=== PATIENT | male | born 1950 | race Caucasian/White ===

== ENCOUNTER → 2021-09-23 13:13 | Outpatient (CLI) | payer MEDICARE, SELFPAY ==
--- NOTE | ~2021-09-23 | CT_ITS ---
EXAMINATION: CT abdomen pelvis wo/w con DATE: 09/23/2021 13:48 INDICATION: Diverticulosis TECHNIQUE: Computed tomography (CT) of the abdomen and pelvis was performed without and with 100 cc O mnipaque 350 intravenous contrast. The dose-length product was 1741.37 mGy-cm. Automated exposure con trol and iterative reconstruction technique were employed. COMPARISON: CT dated 12/15/2018 FINDINGS: Lung bases are unremarkable. Heart size normal. No significant pleural or pericardial effus ion. There are calcified granulomas in the right lower lobe. Mild atherosclerosis. There is ectasia o f the infrarenal abdominal aorta measuring up to 2.8 cm with ectasia of the common iliac arteries. Th ere is a 2 cm exophytic right renal cyst. Status post cholecystectomy. The liver, pancreas, adrenal g lands and left kidney are unremarkable. There are calcified granulomas of the spleen. Small fat-conta ining umbilical hernia. Normal appendix. No free air or free fluid. Severe lumbar spondylosis. 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 IMPRESSION: 1. No acute abdominal abnormality. 2: Atherosclerosis with ectasia of the infrarenal abdominal aorta and common iliac arteries. Reviewed, dictated and finalized at location A. R VEHICLES INSPECTOR IMPRESSION: 1. No acute abdominal abnormality. 2: Atherosclerosis with ectasia of the infrarenal abdominal aorta and common il iac arteries.
[2021-09-23 13:36] LABS: Estimated Glomerular Filt Rate > 60
== END ==
DX: K57.90 Diverticulosis of intestine, part unspecified, without perforation or abscess without bleeding (principal); Z87.11 Personal history of peptic ulcer disease; I26.99 Other pulmonary embolism without acute cor pulmonale
CPT/HCPCS: 74178; Q9967

== ENCOUNTER 2022-09-03 08:08 | Outpatient (CLI) | payer MEDICARE, SELFPAY ==
[2022-09-03 18:48] LABS: Alanine Aminotransferase 45 U/L (6-50); Albumin Level 4.2 g/dL (3.5-5.1); Alkaline Phosphatase 83 U/L (38-126); Anion Gap 11 mmol/L (8-16); Aspartate Amino Transferase 42 U/L (17-59); Bilirubin,Total 1.7 mg/dL (0.2-1.3); Blood Urea Nitrogen 15 mg/dL (9-20); Calcium 9.2 mg/dL (8.4-10.2); Carbon Dioxide 25 mmol/L (22-30); Chloride 102 mmol/L (98-107); Cholesterol 139 mg/dL (0-200); Estimated Glomerular Filt Rate > 60; Glucose 87 mg/dL (65-110); HDL Direct 29 mg/dL; Potassium 4.2 mmol/L (3.4-5.0); Sodium 138 mmol/L (137-145); Triglycerides 81 mg/dL (<150)
[2022-09-03 18:49] LABS: Basophils Absolute Auto 0.1 K/mm3 (0.0-0.1); Basophils Percent Auto 0.8 % (0.2-1.2); Eosinophils Absolute Auto 0.3 K/mm3 (0-0.3); Eosinophils Percent Auto 5.4 % (0-4.4); Hematocrit 46.7 % (42.0-52.0); Immature Granulocyte Absolute 0.04 K/mm3 (0.00-0.031); Immature Granulocyte Percent A 0.6 % (0-0.5); Lymphocytes Percent Auto 28.8 % (18.3-44.2); Mean Corpuscular HGB Conc 32.1 g/dl (32-36); Mean Corpuscular Hemoglobin 32.9 pg (26-34); Mean Corpuscular Volume 102.4 fl (80-100); Mean Platelet Volume 11.1 fl (7.4-10.4); Monocytes Absolute Auto 0.6 K/mm3 (0.1-0.6); Monocytes Percent Auto 9.3 % (2.6-8.5); Neutrophils Absolute Auto 3.4 K/mm3 (1.3-6.7); Neutrophils Percent Auto 55.1 % (45.5-73.1); Platelet Count Result 162 k/mm3 (150-375); Red Blood Count 4.56 M/mm3 (4.6-6.20); Red Cell Distribution Width 13.7 % (11.5-14.5); White Blood Count 6.3 K/mm3 (4.5-10.0)
[2022-09-03 18:59] LABS: LDL Cholesterol Direct 82 mg/dL
[2022-09-03 19:17] LABS: Prostate Specific Antigen 0.4 ng/mL (< OR = 4.0)
[2022-09-03 19:26] LABS: Hemoglobin A1C 6.4 % (<5.7)
== END 2022-09-03 08:09 | disposition home or self-care (01) ==
PROVIDERS: PCP Family Medicine; Visit Provider Family Medicine
DX: D64.9 Anemia, unspecified (principal); I10 Essential (primary) hypertension; E78.5 Hyperlipidemia, unspecified; Z12.5 Encounter for screening for malignant neoplasm of prostate; E11.9 Type 2 diabetes mellitus without complications; R53.83 Other fatigue
CPT/HCPCS: 36415; 80053; 80061; 83036; 84153; 85025; G0103

== ENCOUNTER 2022-12-01 11:52 | Outpatient (CLI) | payer MEDICARE, SELFPAY ==
--- NOTE | 2022-12-01 12:59 | ECG_ITS ---
Measurements Intervals [place] Rate: 45 P: 111 LA: 176 QRS: -28 QRSD: 149 T: 3 QT: 472 QTc: 410 Interpretive Statements SINUS BRADYCARDIA RIGHT BUNDLE BRANCH BLOCK BASELINE ARTIFACT- I, II, III, AVR, AVL, AVF ABNORMAL ECG COMPARED TO ECG 12/15/2018 19:48:28 HEART RATE HAS DECREASED Electronically Signed On 12-01-2022 15:12:25 AIDS COUNSELOR by Wilman Iverson D.O.
[2022-12-01 13:28] LABS: Basophils Absolute Auto 0.1 K/mm3 (0.0-0.1); Basophils Percent Auto 0.8 % (0.2-1.2); Eosinophils Absolute Auto 0.3 K/mm3 (0-0.3); Eosinophils Percent Auto 4.2 % (0-4.4); Hematocrit 44.2 % (42.0-52.0); Hemoglobin 15.2 g/dL (14.0-18.0); Immature Granulocyte Absolute 0.02 K/mm3 (0.00-0.031); Immature Granulocyte Percent A 0.3 % (0-0.5); Lymphocytes Absolute Auto 2.09 K/mm3 (0.9-3.2); Lymphocytes Percent Auto 28.3 % (18.3-44.2); Mean Corpuscular HGB Conc 34.4 g/dl (32-36); Mean Corpuscular Hemoglobin 32.8 pg (26-34); Mean Corpuscular Volume 95.3 fl (80-100); Mean Platelet Volume 10.1 fl (7.4-10.4); Monocytes Absolute Auto 0.7 K/mm3 (0.1-0.6); Monocytes Percent Auto 9.5 % (2.6-8.5); Neutrophils Absolute Auto 4.2 K/mm3 (1.3-6.7); Neutrophils Percent Auto 56.9 % (45.5-73.1); Platelet Count Result 150 k/mm3 (150-375); Red Blood Count 4.64 M/mm3 (4.6-6.20); White Blood Count 7.4 K/mm3 (4.5-10.0)
[2022-12-01 13:34] LABS: Albumin Level 4.2 g/dL (3.5-5.1)
[2022-12-01 13:35] LABS: Urine Cotinine NEGATIVE
[2022-12-01 13:37] LABS: Anion Gap 5 mmol/L (8-16); Blood Urea Nitrogen 18 mg/dL (9-20); Calcium 9.1 mg/dL (8.4-10.2); Carbon Dioxide 28 mmol/L (22-30); Chloride 102 mmol/L (98-107); Estimated Glomerular Filt Rate > 60; Glucose 88 mg/dL (65-110); Potassium 3.8 mmol/L (3.4-5.0); Sodium 135 mmol/L (137-145)
== END 2022-12-01 11:53 | disposition home or self-care (01) ==
LOC: ANHSURGERY 12:00
PROVIDERS: Anesthesiology; PCP Family Medicine; Visit Provider Orthopaedic Surgery
DX: Z01.812 Encounter for preprocedural laboratory examination (principal); Z01.810 Encounter for preprocedural cardiovascular examination; M16.11 Unilateral primary osteoarthritis, right hip; Z79.899 Other long term (current) drug therapy; R00.1 Bradycardia, unspecified; I45.10 Unspecified right bundle-branch block
CPT/HCPCS: 36415; 80048; 80307; 82040; 83036; 85025; 86850; 86900; 86901; 87081; 93005

== ENCOUNTER 2023-05-31 11:54 | Outpatient (CLI) | payer MEDICARE, SELFPAY ==
[2023-05-31 13:25] LABS: Basophils Absolute Auto 0.1 K/mm3 (0.0-0.1); Basophils Percent Auto 1.2 % (0.2-1.2); Eosinophils Absolute Auto 0.4 K/mm3 (0-0.3); Eosinophils Percent Auto 4.9 % (0-4.4); Hemoglobin 15.5 g/dL (14.0-18.0); Immature Granulocyte Absolute 0.05 K/mm3 (0.00-0.031); Immature Granulocyte Percent A 0.7 % (0-0.5); Lymphocytes Absolute Auto 1.85 K/mm3 (0.9-3.2); Lymphocytes Percent Auto 24.1 % (18.3-44.2); Mean Corpuscular HGB Conc 33.7 g/dl (32-36); Mean Corpuscular Hemoglobin 33.3 pg (26-34); Mean Corpuscular Volume 98.9 fl (80-100); Mean Platelet Volume 10.3 fl (7.4-10.4); Monocytes Absolute Auto 0.7 K/mm3 (0.1-0.6); Monocytes Percent Auto 8.7 % (2.6-8.5); Neutrophils Absolute Auto 4.6 K/mm3 (1.3-6.7); Neutrophils Percent Auto 60.4 % (45.5-73.1); Platelet Count Result 154 k/mm3 (150-375); Red Blood Count 4.65 M/mm3 (4.6-6.20); Red Cell Distribution Width 13.2 % (11.5-14.5); White Blood Count 7.7 K/mm3 (4.5-10.0)
[2023-05-31 13:39] LABS: Albumin Level 4.1 g/dL (3.5-5.1)
[2023-05-31 13:42] LABS: Anion Gap 2 mmol/L (8-16); Blood Urea Nitrogen 18 mg/dL (9-20); Calcium 9.5 mg/dL (8.4-10.2); Carbon Dioxide 30 mmol/L (22-30); Chloride 103 mmol/L (98-107); Estimated Glomerular Filt Rate > 60; Glucose 99 mg/dL (65-110); Potassium 4.5 mmol/L (3.4-5.0); Sodium 135 mmol/L (137-145)
[2023-05-31 14:13] LABS: Urine Cotinine NEGATIVE
[2023-05-31 16:01] LABS: Hemoglobin A1C 6.6 % (<5.7)
== END 2023-05-31 11:55 | disposition home or self-care (01) ==
LOC: ANHSURGERY 11:58
PROVIDERS: Anesthesiology; PCP Family Medicine; Visit Provider Orthopaedic Surgery
DX: M16.11 Unilateral primary osteoarthritis, right hip (principal); E11.9 Type 2 diabetes mellitus without complications; Z01.818 Encounter for other preprocedural examination
CPT/HCPCS: 36415; 80048; 80307; 82040; 83036; 85025; 86850; 86900; 86901; 87081

== ENCOUNTER 2023-06-09 01:16 | Day surgery (SDC) | payer MEDICARE, SELFPAY ==
--- NOTE | 2022-12-01 11:43 | PC.NURSE ---
Addendum entered by Kayla Easley RN 12/01/22 12:43: SPOKE WITH HUMPHREY AT DR. URBAN'S OFFICE CONCERNING ELIQUIS - PT INFORMED TO STOP ELIQUIS 3 DAYS PRIOR TO SURGERY WITH LAST DOSE TO BE TAKEN ON 12/03/22 - UNDERSTANDING VOICED. Original Note: PRE-OP INSTRUCTIONS, PLEASE READ CAREFULLY Report to the Outpatient Waiting Room, entrance under the green pavilion located off [facility], at time _0900_ on date _12/07/22_. Planned Procedure Time: _1100_. PACK A SMALL OVERNIGHT BAG AND LEAVE IN THE CAR ALONG WITH YOUR WALKER Time changes happen often and if your time is changed the preop area will call you the afternoon before. - You and your visitor will be asked to self-screen and do not enter if you have any COVID symptoms. - Only one visitor is requested with a max of two and NO children visitors are allowed at this time. - The patient visitor may be requested to leave or wait in car when not with patient due to distancing restrictions. - A mask is optional within the hospital at this time. -VISITING HOURS 8AM-8PM, LIMIT OF 2 VISITORS AT A TIME Patients may have clear liquids (water, carbonated beverages, clear teas, apple juice) until 3 hours prior to surgery (0800 AM) with a maximum of 20 ounces. - No food from midnight until time of surgery Take the following medications with a SIP of water the morning of surgery: _TYLENOL IF NEEDED_ DO NOT STOP ANY OF YOUR OTHER PRESCRIPTION MEDICATIONS PRIOR TO SURGERY ?EXCEPT THE FOLLOWING Medications to discontinue per DR. URBAN - _APIXABAN (ELIQUIS) 5 DAYS PRIOR TO SURGERY, Date to take last dose 12/01/22_ Medications to discontinue per ANESTHESIA - _GLUCOSAMINE-CHONDROITIN 3 DAYS PRIOR TO SURGERY, Date to take last dose 12/03/22_ Please no deodorant, or body powder the day of surgery. No jewelry (including any body piercings) or valuables the day of surgery, leave them at home. Please take a shower or bath the night before, or the morning of, surgery with an antibacterial soap. Wear comfortable, loose fitting clothing. - Jewelry must be removed prior to entering the operating room. Rings and piercings that are not removed may be cut off. - The hospital will not accept responsibility for valuables. - Please leave all valuables, including medications, at home the day of surgery. If you are going home after surgery, a licensed solo truck driver must drive you home. - NO public transportation without another adult if you receive anesthesia. - We recommend that an adult stay with you for 24 hours following discharge. - We also recommend that you do not drive, make important decision, drink alcoholic beverages, or take any drugs that were not prescribed by your health care provider for at least 24 hours after your discharge time. Follow any additional instructions given to you from your surgeon. If you or anyone in your household have experienced Covid symptoms in the past week, please notify your surgeon or the nurse liaison at the phone number below for possible testing. Instructions given to _PATIENT_and asked if any additional questions and then verbalized understanding. Patient advised to call surgeon office or pre surgery nurse liaison [phone] if any additional questions.
[2022-12-01 12:18] VITALS: BP 132/70; PULSE 50; RESP 20; TEMP 36.8; O2SAT 99; BMI 30.7
--- NOTE | 2022-12-03 12:51 | PM.IMHP ---
H&P: HPI History of Present Illness Date/Time: 12/03/22 12:51 Chief Complaint: the patient is a 72-year-old male who presents with chronic ongoing history of right hip and groin pain. The patient has limited motion in the right hip joint has aching pain that radiates into the thigh worse with activity somewhat relieved by rest. He notes he cannot stand or walk for long periods, this has been going on for several years now worsening with time. X-rays this time reveal severe primary osteoarthritis which is [id number] the right femoral acetabular joint with osteophyte formation and complete loss of joint space. The patient has failed a long course of conservative measures including anti-inflammatories prednisone and activity modification. At this point he has discussed further treatment options in detail with Dr. Meraz he would like to proceed with right total hip arthroplasty. Review of Systems Review of Systems: Ten point review of systems otherwise negative [facility] Past Medical History Medical History Allergies Arthritis Blood clotting disorder Cholecystectomy planned 2019 Diabetes H/O ulceration Hypertension Surgical History Surgical History H/O knee surgery Double 2017 History of tonsillectomy 1955 Family History Family History Father Acute myocardial infarction Hypertension Heart disease Mother Family history of chronic obstructive pulmonary disease Sibling Diabetes mellitus Cancer Hypertension Social History Social History Social History: Caffeine-none Smoking status: Never smoker Second hand tobacco smoke exposure: No Additional smoking assessment comments: PT DENIES ALL FORMS OF TOBACCO USE Alcohol intake: never Substance use: never Substance use type: does not use Lack of Transportation: No Lack of Food: Never True Current Housing: I Have Housing Concerned About Future Housing: No Difficulty Paying Gas/Electric Bills: No Difficulty Paying for Meds: No Currently Unemployed: No Education: Bachelor's Degree Difficulty w/ Childcare or Family Care: No Living arrangements: with family Additional living arrangements comments: LIVES WITH [employer] [place] Occupation/Education: retired Gender identity (if verbalized by the patient): Male Sexual Orientation (if Verbalized by the Patient): Straight or Heterosexual Spiritual care concerns: No Agree to blood products: Yes Meds Home Medications and Allergies Home Medications Medication Instructions Recorded Confirmed Type acetaminophen 500 mg tablet 1,000 mg PO Q6H PRN Pain 06/08/22 12/01/22 History (Tylenol Extra Strength) allopurinol 300 mg tablet 300 mg PO DAILY 06/08/22 12/01/22 History antiarthritic combination no.2 900 1,800 mg PO DAILY 06/08/22 12/01/22 History mg tablet (glucosamine-chondroitin) apixaban 5 mg tablet (Eliquis) 5 mg PO BID 06/08/22 12/01/22 History atorvastatin 20 mg tablet 20 mg PO DAILY 06/08/22 12/01/22 History cetirizine 10 mg tablet (Zyrtec) 10 mg PO DAILY 06/08/22 12/01/22 History furosemide 40 mg tablet (Lasix) 40 mg PO QAM PRN SWELLING 06/08/22 12/01/22 History insulin degludec 200 unit/mL (3 16 unit subcut DAILY 06/08/22 12/01/22 History mL) subcutaneous pen (Tresiba FlexTouch U-200 insulin) losartan 50 mg tablet 50 mg PO DAILY 06/08/22 12/01/22 History Allergies Allergy/AdvReac Type Severity Reaction Status Date / Time No Known Allergies Allergy Verified 12/01/22 12:12 Exam Narrative: on exam the patient is noted be a well-developed well-nourished male no acute distress alert oriented x3. Normal mood and affect. He is noted to be 6 ft 1 in tall 230 lb with a BMI 30.3. Hearing and vision intact. Respiratory is good no distress. Puls
[2023-05-31 12:03] VITALS: BMI 31.5
--- NOTE | 2023-05-31 12:24 | PC.NURSE ---
Report to the Outpatient Waiting Room, entrance under the green pavilion located off [facility], at time _0600 on date __06/09/23 . Planned Procedure Time: __0730 . Time changes happen often and if your time is changed the preop area will call you the afternoon before. - You and your visitor will be asked to self-screen and do not enter if you have any COVID symptoms. - A mask is optional within the hospital at this time. Patients may have clear liquids (water, carbonated beverages, clear teas, apple juice) until 3 hours prior to surgery with a maximum of 20 ounces. - No food from midnight until time of surgery - Infants may have breast milk until 4 hours before surgery, formula 6 hours prior to surgery. - Children will be allowed to drink immediately following surgery. If applicable, please bring a bottle or sippy cup to assist with drinking. Juice, water, soda, and popsicles are readily available. For infants on formula, please bring formula the day of surgery. Pacifiers are allowed. Take the following medications with a SIP of water the morning of surgery: ___NONE DO NOT STOP ANY OF YOUR OTHER PRESCRIPTION MEDICATIONS PRIOR TO SURGERY ?EXCEPT THE FOLLOWING Medications to discontinue per physician ___PT STATES HOLD ELIQUIS 3 DAYS PRE OP PER DR URBAN/DR CABAN .LAST DOSE 06/05/23. ALL VITAMINS 3 DAYS PRE OP. LAST DOSE 06/05/23 Please no make-up, nail czech, hairspray, perfume, deodorant, or body powder the day of surgery. No jewelry (including any body piercings) or valuables the day of surgery, leave them at home. Please take a shower or bath the night before, or the morning of, surgery with an antibacterial soap. Wear comfortable, loose fitting clothing. Children are encouraged to wear pajamas. - Jewelry must be removed prior to entering the operating room. Rings and piercings that are not removed may be cut off. - The hospital will not accept responsibility for valuables. - Please leave all valuables, including medications, at home the day of surgery. If you are going home after surgery, a licensed concrete mixer truck driver must drive you home. - NO public transportation without another adult if you receive anesthesia. - We recommend that an adult stay with you for 24 hours following discharge. - We also recommend that you do not drive, make important decision, drink alcoholic beverages, or take any drugs that were not prescribed by your health care provider for at least 24 hours after your discharge time. For Pediatric surgeries, we recommend two adults accompany the child home. Follow any additional instructions given to you from your surgeon. If you or anyone in your household have experienced Covid symptoms in the past week, please notify your surgeon or the nurse liaison at the phone number below for possible testing. VERBAL AND WRITTEN instructions given to __PATIENT and asked if any additional questions and then verbalized understanding. Patient advised to call surgeon office or pre surgery nurse liaison [phone] if any additional questions.
--- NOTE | 2023-06-04 14:03 | PM.IMHP ---
H&P: HPI History of Present Illness Date/Time: 06/04/23 14:03 Chief Complaint: The patient is a 73-year-old male who sees Dr. Meraz regarding his right hip. The patient has a chronic ongoing history of pain localized to the right hip this is due to primary osteoarthritis. Patient notes aching pain in the groin that radiates into the thigh worse with activities and relieved by rest. He cannot stand or walk for long periods notes stiffness in the hip aching pain with startup pain rest pain and night pain. Despite conservative measures including activity modification anti-inflammatories symptoms continue. X-rays show advanced femoral acetabular joint osteoarthritis of the right hip. The patient has discussed further treatment options in detail Dr. Meraz he would not to proceed with right total hip arthroplasty. Review of Systems Review of Systems: Ten point review of systems otherwise negative [facility] Past Medical History Medical History Allergies Arthritis Blood clotting disorder Cholecystectomy planned 2019 Diabetes H/O ulceration Hypertension Surgical History Surgical History H/O knee surgery Double 2017 History of tonsillectomy 195 Family History Family History Father Acute myocardial infarction Hypertension Heart disease Mother Family history of chronic obstructive pulmonary disease Sibling Diabetes mellitus Cancer Hypertension Social History Social History Social History: Caffeine-none Smoking status: Never smoker Second hand tobacco smoke exposure: No Additional smoking assessment comments: DENIES ANY FORM OF TOBACCO USE Alcohol intake: never Substance use: never Substance use type: does not use Lack of Transportation: No Lack of Food: Never True Current Housing: I Have Housing Concerned About Future Housing: No Difficulty Paying Gas/Electric Bills: No Difficulty Paying for Meds: No Currently Unemployed: No Education: Bachelor's Degree Difficulty w/ Childcare or Family Care: No Living arrangements: with family Additional living arrangements comments: LIVES WITH [employer] [place] Occupation/Education: retired Gender identity (if verbalized by the patient): Male Sexual Orientation (if Verbalized by the Patient): Straight or Heterosexual Spiritual care concerns: No Agree to blood products: Yes Meds Home Medications and Allergies Home Medications Medication Instructions Recorded Confirmed Type acetaminophen 500 mg tablet 1,000 mg PO Q6H PRN Pain 06/08/22 05/31/23 History (Tylenol Extra Strength) cetirizine 10 mg tablet (Zyrtec) 10 mg PO DAILY 06/08/22 05/31/23 History furosemide 40 mg tablet (Lasix) 40 mg PO QAM PRN SWELLING 06/08/22 05/31/23 History allopurinol 300 mg tablet 300 mg PO DAILY #90 tabs 12/14/22 05/31/23 Rx atorvastatin 20 mg tablet 20 mg PO DAILY #90 tabs 12/14/22 05/31/23 Rx losartan 50 mg tablet 50 mg PO DAILY #90 tabs 12/14/22 05/31/23 Rx lancets (Accu-Chek Softclix #100 ea 02/26/23 05/31/23 Rx Lancets) apixaban 5 mg tablet (Eliquis) 5 mg PO BID #180 tabs 03/15/23 05/31/23 Rx pen needle, diabetic 31 gauge x #100 ea 05/20/23 05/31/23 Rx 5/16 (BD Ultra-Fine Short Pen Needle) glucosamine sulf dipot 2 cap PO DAILY 05/31/23 05/31/23 History chlr,msm,chond 550 mg-C 30 mg-casey 1 mg capsule (Glucosamine Chondroitin) insulin degludec 200 unit/mL (3 16 unit subcut HS 05/31/23 05/31/23 History mL) subcutaneous pen (Tresiba FlexTouch U-200 insulin) Allergies Allergy/AdvReac Type Severity Reaction Status Date / Time No Known Allergies Allergy Verified 05/31/23 12:04 Exam Narrative: on exam the patient is noted to be well-developed well-nourished male no acute distress al
[2023-06-09] VITALS (10 sets, daily range): BP systolic 81–167; BP diastolic 46–71; PULSE 50–68; RESP 14–18; TEMP 36.1–36.8; O2SAT 90–100
--- NOTE | ~2023-06-09 | XR_ITS ---
EXAMINATION: XR hip RT min 2V DATE: 06/09/2023 10:17 INDICATION: Total right hip arthroplasty. Postop. TECHNIQUE: 2 views of right hip were obtained. COMPARISON: None. FINDINGS: There is a total right hip arthroplasty in near-anatomic alignment. No fracture. There is g as in the soft tissues, consistent recent surgery. Skin modesta are noted. IMPRESSION: 1. Total right hip arthroplasty in near-anatomic alignment. Reviewed, dictated and finalized at location A.
--- NOTE | ~2023-06-09 | XR_ITS ---
EXAMINATION: XR surgery orthopedic DATE: 06/09/2023 09:34 INDICATION: Right hip arthroplasty. TECHNIQUE: 2 intraoperative views of the pelvis were obtained. COMPARISON: None. FINDINGS: The first image demonstrates a broach in proximal right femur. The right acetabular compone nt is in expected position. The second image demonstrates a total right hip arthroplasty in near-jose f omic alignment. IMPRESSION: 1. Total right hip arthroplasty in near-anatomic alignment. Reviewed, dictated and finalized at location A.
[2023-06-09 06:43] LABS: Glucose Point of Care 107 mg/dl (65-105)
--- NOTE | 2023-06-09 06:59 | WPDHPUPDATE1 ---
History and Physical Update Update Date/Time: 06/09/23 06:59 History and Physical has been reviewed, including an updated exam of the patient. There are NO changes in the patient's condition. Risks, benefits, and alternatives have been discussed and questions answered. Patient agrees to proceed with procedure.
[2023-06-09] MEDS: ACETAMINOPHEN 500 MG TABLET 1000 MG PO (07:00)
[2023-06-09] MEDS: LACTATED RINGERS 1,000 ML 30 ML IV CONT ×2 (07:00→10:00)
[2023-06-09] MEDS: TRANEXAMIC ACID 1,000MG/ISO100 1,000 MG/100 ML BAG 200 MG IVPB (07:00)
--- NOTE | 2023-06-09 07:02 | WPDANESEPPF ---
Anes - Initial Pre Proc Eval Procedure: Operation Date: 06/09/23 07:30 Proposed Procedures p Right Total Hip Arthroplasty - Clem Meraz MD Date/Time: 06/09/23 07:02 Surgeon: Clem Meraz MD Pre Op Diagnosis: oa right hip Patient Data Age: 73 Gender: M Height: 1.83 m Weight: 104.5 kg Last Vital Signs Temp 36.8 C 12/01/22 12:18 Pulse 50 L 12/01/22 12:18 Resp 20 12/01/22 12:18 BP 132/70 12/01/22 12:18 Pulse Ox 99 12/01/22 12:18 O2 Del Method Room Air 12/01/22 12:18 Allergies Allergy/AdvReac Type Severity Reaction Status Date / Time No Known Allergies Allergy Verified 05/31/23 12:04 Home Medications Medication Instructions Recorded Confirmed Type acetaminophen 500 mg tablet 1,000 mg PO Q6H PRN Pain 06/08/22 05/31/23 History (Tylenol Extra Strength) cetirizine 10 mg tablet (Zyrtec) 10 mg PO DAILY 06/08/22 05/31/23 History furosemide 40 mg tablet (Lasix) 40 mg PO QAM PRN SWELLING 06/08/22 05/31/23 History lancets (Accu-Chek Softclix #100 ea 02/26/23 05/31/23 Rx Lancets) apixaban 5 mg tablet (Eliquis) 5 mg PO BID #180 tabs 03/15/23 05/31/23 Rx pen needle, diabetic 31 gauge x #100 ea 05/20/23 05/31/23 Rx 5/16 (BD Ultra-Fine Short Pen Needle) glucosamine sulf dipot 2 cap PO DAILY 05/31/23 05/31/23 History chlr,msm,chond 550 mg-C 30 mg-casey 1 mg capsule (Glucosamine Chondroitin) insulin degludec 200 unit/mL (3 16 unit subcut HS 05/31/23 05/31/23 History mL) subcutaneous pen (Tresiba FlexTouch U-200 insulin) allopurinol 300 mg tablet 300 mg PO DAILY #90 tabs 06/07/23 Rx atorvastatin 20 mg tablet 20 mg PO DAILY #90 tabs 06/07/23 Rx losartan 50 mg tablet 50 mg PO DAILY #90 tabs 06/07/23 Rx Laboratory Tests 06/09/23 06:41 POC Capillary Glucose 107 H mg/dl (65-105) Patient hx anesthesia problems: none Family hx anesthesia problems: none Results Review: All pre-operative results and documents have been reviewed as part of the pre-operative evaluation. [facility] Past Medical History Medical History Allergies Arthritis Blood clotting disorder Cholecystectomy planned 2018 Diabetes H/O ulceration Hypertension Surgical History Surgical History H/O knee surgery Double 2017 History of tonsillectomy 1955 Family History Family History Father Acute myocardial infarction Hypertension Heart disease Mother Family history of chronic obstructive pulmonary disease Sibling Diabetes mellitus Cancer Hypertension Social History Social History Social History: Caffeine-none Smoking status: Never smoker Second hand tobacco smoke exposure: No Additional smoking assessment comments: DENIES ANY FORM OF TOBACCO USE Alcohol intake: never Substance use: never Substance use type: does not use Lack of Transportation: No Lack of Food: Never True Current Housing: I Have Housing Concerned About Future Housing: No Difficulty Paying Gas/Electric Bills: No Difficulty Paying for Meds: No Currently Unemployed: No Education: Bachelor's Degree Difficulty w/ Childcare or Family Care: No Living arrangements: with family Additional living arrangements comments: LIVES WITH [employer] - [place] Occupation/Education: retired Gender identity (if verbalized by the patient): Male Sexual Orientation (if Verbalized by the Patient): Straight or Heterosexual Spiritual care concerns: No Agree to blood products: Yes Anes - Eval Final PreProcedure Day of Procedure 06/09/23 07:02 Patient weight: obese Heart: regular rate and rhythm Lungs: clear to auscultation Airway: Mallampati scale class II Neurological: alert and oriented Last oral intake: >/= 8 hours ASA classifi
--- NOTE | 2023-06-09 07:26 | SUR.PREOP ---
pt came in today with 2 small nicks on his right gao. dr masterson was notified, and dr masterson checked it out. ok to proceed per dr masterson.
[2023-06-09] MEDS: ceFAZolin 2 GM/D5W 50 ML 2 GM/50 ML BAG IVPB (07:35)
[2023-06-09] MEDS: TRANEXAMIC ACID 1,000 MG/10 ML AMPUL 1000 MG IV PUSH (09:30)
--- NOTE | 2023-06-09 09:34 | P.OP_ITS ---
Procedure Note - Detailed Date of Procedure 06/09/23 Pre-op Diagnosis Osteoarthits right hip Post-op Diagnosis Same Procedure Performed RIGHT total hip arthroplasty Surgeon Clem Meraz MD Rubber Flap Cutter Paulino Juarez Anesthesia General Indications Hypetrophic arthritis Description of Procedure Patient was brought to the operating room and anesthetic was administered. The patient was placed with the RIGHT up and steriley prepped and draped in the usual manner. Longitudinal incision was done, dissection carried down to the fascia. A Hardinge type approach was used and the femoral head was dislocated anteriorly. Femoral head was removed a finger breath above the lesser trochanter. The acetabulum was serially reamed to accept a 56mm component. This was impacted into place and secured with 2 25mm screws. A high wall liner was placed. The femur was reamed and broached to accept a 13mm component which was impacted into place. A plus +3 ball and neck were placed and the hip was put through full range of motion. The hip was noted to be stable. The wounds were then closed in a layer fashion using #5 ethibond, 2 vicryl, 2-0 vicryl and modesta. Patient left the operating room in satisfactory condition. Estimated Blood Loss 600 Drains No Packing No Pathology None sent Complications No immediate complications Condition Stable Disposition PACU
--- NOTE | 2023-06-09 10:07 | P.OPB_ITS ---
Procedure Note - Brief Procedure Note - Brief Date of procedure: 06/09/23 Preop diagnosis-advanced primary osteoarthritis right hip Postop diagnosis-same status post right total hip arthroplasty Procedure performed: Right total hip arthroplasty Surgeon: Surgeon-Clem Meraz MD assistant sales center manager-Paulino Juarez PA-C Description of procedure: The patient was taken to the operating room on June 09, 2023. I entered the room at 7:40 a.m.. I then assisted with positioning the patient in lateral decubitus position on his left side right hip up. Well-padded hip positioners were used to stabilize the patient. I then assisted with a sterile prep and drape of the right lower extremity. Dr. Meraz entered the room and commenced with a right total hip arthroplasty. Throughout the procedure I assisted with wound retraction, hemostasis with suction and cautery, positioning of the right lower extremity to aid with placement of the total hip implant trials and then the permanent implant. Once this was done I assisted Dr. Meraz with the closure of the abductors. He then completed his portion I then closed the deep fascial layer of the right lateral hip with 2. Vicryl, 2. Quill as well after I had irrigated the wound thoroughly from deep to superficial and placed Surgicel powder and made sure all the bleeders were cauterized and hemostasis was obtained. I then closed the superficial skin layer with 2-0 Vicryl, 0 Quill, and then finally surgical modesta. I placed a sterile dressing with Xeroform gauze 4 x 4 gauze and surgical tape. Patient was then placed on his back carefully and he was awakened from anesthesia. No intraoperative complications were noted the patient was in good condition ready for discharge to recovery. He was to spend the night for observation and pain control if in stable condition tomorrow he will be discharged home. Total blood loss was 500 cc. I exited the room at 10:00 a.m..
--- NOTE | 2023-06-09 10:15 | PM.OP ---
Procedure Note - Brief Procedure Note - Brief Date of procedure: 06/24/23 oa right hip Surgeon: WAYNE Nunn
[2023-06-09 10:21] LABS: Glucose Point of Care 136 mg/dl (65-105)
[2023-06-09 10:32] LABS: Hematocrit 36.5 % (42.0-52.0); Hemoglobin 12.2 g/dL (14.0-18.0)
[2023-06-09] MEDS: fentaNYL CITRATE INJ (*CRX) 100 MCG/2 ML VIAL 25 MCG IV PUSH ×2 (10:51→11:00)
--- NOTE | 2023-06-09 11:15 | ADMGEN ---
This patient, Robert Coronado, was admitted to [facility] Surg Room 310-01. Patient/family oriented to hospital policies and general routines including ID bracelet, bed and alarms, visiting hours, pain management, procedures, bathroom and other care routines, personal items, smoking policy, room service/diet, and visiting hours. Information on how to activate the Rapid Response Team has been discussed. Patient/Family are encouraged to report perceived risks to care and to ask questions if they do not understand what they are told or what they should do.
--- NOTE | 2023-06-09 13:11 | WPDCN ---
Assessment and Plan Assessment and plan (1) Primary osteoarthritis of right hip: Code(s): M16.11 - Unilateral primary osteoarthritis, right hip Status: Acute Assessment and Plan: Postoperative day 0 status post right total hip arthroplasty. Wound care, pain control, and DVT prophylaxis deferred to Dr. Meraz. Monitor hemoglobin and hematocrit. Agree with PT/OT. (2) Insulin dependent type 2 diabetes mellitus: Code(s): E11.9 - Type 2 diabetes mellitus without complications; Z79.4 - intermediate project manager (current) use of insulin Status: Acute Assessment and Plan: Resume basal insulin. Initiate sliding scale insulin, Accu-Cheks, and hypoglycemic protocol. Recent A1c was 6.6%. (3) Hypertension: Code(s): I10 - Essential (primary) hypertension Status: Acute Assessment and Plan: Blood pressures have been stable postoperatively. Antihypertensives will be reviewed and resumed as appropriate. (4) Hyperlipidemia: Qualifiers: Hyperlipidemia type: unspecified Qualified Code(s): E78.5 - Hyperlipidemia, unspecified Code(s): E78.5 - Hyperlipidemia, unspecified Status: Acute Assessment and Plan: Continue statin and check LFTs in a.m. (5) History of pulmonary embolism: Code(s): Z86.711 - Personal history of pulmonary embolism Status: Acute Assessment and Plan: Resume apixaban as soon as possible. Plan Thank you for allowing us to participate in this patient's care. Please do not hesitate to contact us with any questions. HPI Data of Consult Date/Time: 06/09/23 13:10 Requesting Physician: Clem Meraz MD Consult Narrative Reason for consult: Postoperative medical management. Narrative: This is a very pleasant 73-year-old male with history of DVT and pulmonary embolism, insulin-dependent type 2 diabetes mellitus, hypertension, hyperlipidemia, and arthritis whom the hospitalist service has been consulted for help managing his medical conditions postoperatively. He has had longstanding pain in his right hip which has not been amenable to conservative outpatient therapy and he elected for replacement today. His surgery was performed under general anesthesia with no immediate complications documented an estimated blood loss of 600 mL. He has done well postoperatively and he has been ambulating with a walker and up to the chair without issues. His pain is well controlled, and he has minimal discomfort at this time rated 3/10. He denies fever, chills, sweats, chest pain, shortness a breath, nausea, and vomiting. He also denies paresthesias, skin color, and temperature changes distal to the surgical site. His diabetes is well controlled with a recent hemoglobin A1c of 6.6%. He has not been having issues with extreme highs or lows. He has been on apixaban long-term due to recurrent venous thromboembolism and that was stopped 3 days prior to surgery. It is my understanding that he is to resume apixaban this evening. He believes the rest of his chronic medical conditions are well controlled on medication. Review of Systems Review of Systems: Twelve systems were reviewed and are negative except for as per HPI. FORMERLY [facility], [facility] Past Medical History Medical History (Updated 06/09/23 @ 13:18 by Daya Grier PA-C) Arthritis Blood clotting disorder Gout Hypertension Insulin dependent type 2 diabetes mellitus Peptic ulcer Pulmonary embolism (09/2021) Surgical History Surgical History (Updated 06/09/23 @ 13:15 by Daya Grier PA-C) History of basal cell carcinoma excision History of bilateral cataract extraction History of bilateral knee arthroplasty (08/2017) History of cholecystectomy (2018) History of colonoscopy with polypectomy History of tonsillectomy (1954) Family History Family History Father Acute myocardial infarction Hypertension Heart disease Mo
[2023-06-09] MEDS: HYDROcodone/acetaminophen (*CRX) 7.5-325 MG TABLET 2 TAB PO (13:51)
[2023-06-09] MEDS: ceFAZolin 1 GM/NS 50 ML 1 GM/50 ML BAG IVPB ×2 (14:35→23:26)
[2023-06-09 16:48] LABS: Glucose Point of Care 194 mg/dl (65-105)
[2023-06-09] MEDS: APIXABAN 5 MG TABLET PO (17:52)
[2023-06-09] MEDS: SENNA/DOCUSATE SODIUM TABLET 2 TAB PO (17:53)
[2023-06-09] MEDS: HYDROcodone/acetaminophen (*CRX) 5-325 MG TABLET 1 TAB PO ×2 (17:55→21:56)
[2023-06-09 21:11] LABS: Glucose Point of Care 155 mg/dl (65-105)
[2023-06-09] MEDS: INSULIN GLARGINE (*BKC) 100 UNITS/ML 16 UNITS SUB-Q (21:54)
[2023-06-10 00:52] VITALS: BP 130/61; PULSE 55; RESP 14; TEMP 36.3; O2SAT 99
[2023-06-10 04:52] VITALS: BP 130/60; PULSE 58; RESP 14; TEMP 36; O2SAT 100
[2023-06-10] MEDS: ceFAZolin 1 GM/NS 50 ML 1 GM/50 ML BAG IVPB (06:04)
[2023-06-10] MEDS: HYDROcodone/acetaminophen (*CRX) 5-325 MG TABLET 1 TAB PO ×2 (06:07→09:16)
[2023-06-10 06:23] LABS: Basophils Percent Auto 0.2 % (0.2-1.2); Hematocrit 37.3 % (42.0-52.0); Hemoglobin 12.6 g/dL (14.0-18.0); Immature Granulocyte Absolute 0.06 K/mm3 (0.00-0.031); Immature Granulocyte Percent A 0.5 % (0-0.5); Immature Platelet Fraction Pct 6.2 % (0.9-11.2); Lymphocytes Absolute Auto 1.06 K/mm3 (0.9-3.2); Lymphocytes Percent Auto 9.1 % (18.3-44.2); Mean Corpuscular HGB Conc 33.8 g/dl (32-36); Mean Corpuscular Hemoglobin 33.3 pg (26-34); Mean Corpuscular Volume 98.7 fl (80-100); Mean Platelet Volume 10.8 fl (7.4-10.4); Monocytes Percent Auto 8.6 % (2.6-8.5); Neutrophils Absolute Auto 9.5 K/mm3 (1.3-6.7); Neutrophils Percent Auto 81.6 % (45.5-73.1); Platelet Count Result 156 k/mm3 (150-375); Red Blood Count 3.78 M/mm3 (4.6-6.20); White Blood Count 11.6 K/mm3 (4.5-10.0)
[2023-06-10 06:29] LABS: Anion Gap 7 mmol/L (8-16); Blood Urea Nitrogen 19 mg/dL (9-20); Calcium 8.5 mg/dL (8.4-10.2); Carbon Dioxide 28 mmol/L (22-30); Chloride 101 mmol/L (98-107); Estimated CRCL calculation 89 ml/min; Estimated Glomerular Filt Rate > 60; Glucose 154 mg/dL (65-110); Potassium 4.4 mmol/L (3.4-5.0); Sodium 136 mmol/L (137-145)
[2023-06-10 06:33] LABS: Alanine Aminotransferase 30 U/L (6-50); Albumin Level 3.5 g/dL (3.5-5.1); Alkaline Phosphatase 60 U/L (38-126); Aspartate Amino Transferase 41 U/L (17-59); Bilirubin,Total 1.6 mg/dL (0.2-1.3); Magnesium 1.8 mg/dL (1.6-2.3)
[2023-06-10 08:00] VITALS: BP 127/61; PULSE 54; RESP 14; TEMP 36.4; O2SAT 98
[2023-06-10 08:15] LABS: Glucose Point of Care 108 mg/dl (65-105)
[2023-06-10] MEDS: polyethylene glycoL 3350 17 GM POWD.PACK PO (08:38)
[2023-06-10] MEDS: SENNA/DOCUSATE SODIUM TABLET 2 TAB PO (08:38)
[2023-06-10] MEDS: CELECOXIB 200 MG CAPSULE PO (08:39)
[2023-06-10] MEDS: LOSARTAN POTASSIUM 50 MG TABLET PO (08:39)
[2023-06-10] MEDS: ATORVASTATIN 20 MG TABLET PO (08:39)
[2023-06-10] MEDS: APIXABAN 5 MG TABLET PO (08:39)
--- NOTE | 2023-06-10 09:10 | PM.IMPN ---
Progress Note: A&P Assessment and Plan (1) Primary osteoarthritis of right hip: Code(s): M16.11 - Unilateral primary osteoarthritis, right hip Status: Acute Assessment and Plan: Postoperative day 1 status post right total hip arthroplasty. Wound care, pain control, and DVT prophylaxis deferred to Dr. Meraz. Monitor hemoglobin and hematocrit. Agree with PT/OT. (2) Insulin dependent type 2 diabetes mellitus: Code(s): E11.9 - Type 2 diabetes mellitus without complications; Z79.4 - care home (current) use of insulin Status: Acute Assessment and Plan: Resume basal insulin. Initiate sliding scale insulin, Accu-Cheks, and hypoglycemic protocol. Recent A1c was 6.6%. (3) Hypertension: Code(s): I10 - Essential (primary) hypertension Status: Acute Assessment and Plan: Blood pressures have been stable postoperatively. Antihypertensives will be reviewed and resumed as appropriate. (4) Hyperlipidemia: Qualifiers: Hyperlipidemia type: unspecified Qualified Code(s): E78.5 - Hyperlipidemia, unspecified Code(s): E78.5 - Hyperlipidemia, unspecified Status: Acute Assessment and Plan: Continue statin and check LFTs in a.m. (5) History of pulmonary embolism: Code(s): Z86.711 - Personal history of pulmonary embolism Status: Acute Assessment and Plan: Apixaban resumed Plan Thank you for allowing us to participate in this patient's care. Please do not hesitate to contact us with any questions. Subjective Date/time seen: 06/10/23 09:10 Interval history: This is a very pleasant 73-year-old male with history of DVT and pulmonary embolism, insulin-dependent type 2 diabetes mellitus, hypertension, hyperlipidemia, and arthritis whom the hospitalist service has been consulted for help managing his medical conditions postoperatively. He has had longstanding pain in his right hip which has not been amenable to conservative outpatient therapy and he elected for replacement today. His surgery was performed under general anesthesia with no immediate complications documented an estimated blood loss of 600 mL. He has done well postoperatively and he has been ambulating with a walker and up to the chair without issues. His pain is well controlled, and he has minimal discomfort at this time rated 3/10. He denies fever, chills, sweats, chest pain, shortness a breath, nausea, and vomiting. He also denies paresthesias, skin color, and temperature changes distal to the surgical site. His diabetes is well controlled with a recent hemoglobin A1c of 6.6%. He has not been having issues with extreme highs or lows. He has been on apixaban long-term due to recurrent venous thromboembolism and that was stopped 3 days prior to surgery. It is my understanding that he is to resume apixaban this evening. He believes the rest of his chronic medical conditions are well controlled on medication. Interval hx 06/10: Patient is seen up in chair and appears well. He states he is feeling good and he is ready to discharge he is just waiting for the okay from orthopedics. He says his pain is minimal and is controlled with his medications. He is tolerating a diet and voiding appropriately. From medical standpoint he is ready to discharge Review of Systems Review of Systems: Twelve systems were reviewed and are negative except for as per HPI. All systems reviewed & are unremarkable except as noted in HPI and below Exam Narrative: General: well-nourished, well-appearing 73-year-old male, sitting up in chair, comfortable, NARD Neuro: awake, alert and oriented x4, speech clear, no focal neuro deficits noted HEENMT: normocephalic, atraumatic, EOMI, sclerae anicteric, moist oral mucosa Respiratory: Clear to auscultation bilaterally without crackles, rhonchi or wheezes, nonlabored breathing Cardio: regular rate, regular rhythm with S1-S2 Abdomen: nondistende
--- NOTE | 2023-06-10 11:34 | PM.DS ---
DS: Admitting Diagnosis Discharge Date June 10, 2023 Admitting Diagnosis Admitting diagnosis-severe primary osteoarthritis right hip status post right total hip arthroplasty. Discharge diagnosis same, severe primary osteoarthritis right hip status post right total hip arthroplasty. DS: Summary Hospital Course Hospital Course: Patient was admitted on June 09, 2023 status post right total hip arthroplasty. Patient was admitted overnight for pain control and observation he did well overnight and postop day 1. Today he is feeling good pain is well controlled tolerated physical therapy well. Vital signs are stable he is afebrile neurovascular the patient is intact wound is clean and dry calves are benign. He is alert oriented x3. Normal mood and affect. Ambulating independently with a walker touchdown weight-bearing. He will continue with this as an outpatient and have home health for outpatient physical therapy. He is deemed stable for discharge to home today. General diet. He will keep the wound clean and dry watch for evidence or drainage or infection. He will follow-up at 2 weeks postop for staple removal and wound recheck. The patient will resume his Eliquis for DVT prophylaxis, and other home medications, he will also be discharged with [place] 7.5 mg/325 mg every 6 hours p.r.n. severe pain. The patient is instructed to call the office immediately at [phone] for any problems difficulties or questions. The patient voiced understanding and agrees with the above plan. Time Spent with Patient Time attestation: Total time spent providing and/or coordinating discharge services: Exam Narrative: Vital signs stable afebrile neurovascularly is intact wound is clean and dry calves are benign. The patient is alert oriented x3. Normal mood and affect. Ambulating touchdown weight-bearing in physical therapy doing well and ready for discharge home. DS: Data Data Completed and Pending Labs on day of discharge: Labs from last 24 hours 06/10/23 06/10/23 06/09/23 08:07 05:35 21:00 WBC 11.6 H RBC 3.78 L Hgb 12.6 L Hct 37.3 L MCV 98.7 MCH 33.3 MCHC 33.8 RDW 13.0 Plt Count 156 MPV 10.8 H Immature Gran % (Auto) 0.5 Neut % (Auto) 81.6 H Lymph % (Auto) 9.1 L [place] % (Auto) 8.6 H Eos % (Auto) 0.0 Baso % (Auto) 0.2 Lymph # (Auto) 1.06 [place] # (Auto) 1.0 H Eos # (Auto) 0.0 Baso # (Auto) 0.0 Abs Immat Gran (auto) 0.06 H Absolute Neuts (auto) 9.5 H Absolute Nucleated RBC 0.0 Nucleated RBC % 0.0 % Immature Plt Fraction 6.2 Sodium 136 L Potassium 4.4 Chloride 101 Carbon Dioxide 28 Anion Gap 7 L BUN 19 Creatinine 0.80 Estim Creat Clear Calc 89 Estimated GFR > 60 Glucose 154 H POC Capillary Glucose 108 H 155 H Calcium 8.5 Magnesium 1.8 Total Bilirubin 1.6 H Direct Bilirubin 0.0 AST 41 ALT 30 Alkaline Phosphatase 60 Total Protein 6.0 L Albumin 3.5 06/09/23 16:11 WBC RBC Hgb Hct MCV MCH MCHC RDW Plt Count MPV Immature Gran % (Auto) Neut % (Auto) Lymph % (Auto) [place] % (Auto) Eos % (Auto) Baso % (Auto) Lymph # (Auto) [place] # (Auto) Eos # (Auto) Baso # (Auto) Abs Immat Gran (auto) Absolute Neuts (auto) Absolute Nucleated RBC Nucleated RBC % % Immature Plt Fraction Sodium Potassium Chloride Carbon Dioxide Anion Gap BUN Creatinine Estim Creat Clear Calc Estimated GFR Glucose POC Capillary Glucose 194 H Calcium Magnesium Total Bilirubin Direct Bilirubin AST ALT Alkaline Phosphatase Total Protein Albumin Procedures/Treatments: Right total hip arthroplasty Discharge Plan Discharge Patient Disposition: Home Health Service Discharge Instructions: Per Care Coordination, patient to discharge with [facility] ([phone]) for PT/OT and long-term services. Agency will call prior to initial visit.
[2023-06-10 11:39] LABS: Glucose Point of Care 131 mg/dl (65-105)
== END 2023-06-10 11:45 | disposition home health service (06) ==
LOC: ANHSURGERY 06:06 → ANH3MEDSUR 11:18
PROVIDERS: Physician Assistant; PCP Family Medicine; Visit Provider Orthopaedic Surgery
PROC: (CPT 27130; principal; 2023-06-09 07:30)
DX: M16.11 Unilateral primary osteoarthritis, right hip (principal); D68.9 Coagulation defect, unspecified; I10 Essential (primary) hypertension; E11.9 Type 2 diabetes mellitus without complications; E78.5 Hyperlipidemia, unspecified; E66.9 Obesity, unspecified; Z68.31 Body mass index [BMI] 31.0-31.9, adult; Z79.01 Long term (current) use of anticoagulants; Z79.4 Long term (current) use of insulin; Z86.711 Personal history of pulmonary embolism
CPT/HCPCS: 27130; 36415; 73502; 80048; 80076; 82948; 83735; 85014; 85018; 85025; 85055; 97110; 97116; 97161; 97165; 97530; 97535; 99199; A9270; C1776; C9290; J0690; J1100; J1815; J2250; J2405; J2704; J3010; J3370; J7120

== ENCOUNTER 2023-09-13 11:17 | Outpatient (CLI) | payer MEDICARE, SELFPAY ==
[2023-09-13 18:11] LABS: Hemoglobin A1C 6.1 % (<5.7)
[2023-09-13 18:49] LABS: Alanine Aminotransferase 32 U/L (6-50); Albumin Level 4.1 g/dL (3.5-5.1); Alkaline Phosphatase 95 U/L (38-126); Anion Gap 9 mmol/L (8-16); Aspartate Amino Transferase 47 U/L (17-59); Bilirubin,Total 1.4 mg/dL (0.2-1.3); Blood Urea Nitrogen 11 mg/dL (9-20); Calcium 9.3 mg/dL (8.4-10.2); Carbon Dioxide 28 mmol/L (22-30); Chloride 103 mmol/L (98-107); Cholesterol 142 mg/dL (0-200); Estimated Glomerular Filt Rate > 60; Glucose 101 mg/dL (65-110); HDL Direct 30 mg/dL; Potassium 4.5 mmol/L (3.4-5.0); Sodium 140 mmol/L (137-145); Triglycerides 62 mg/dL (<150); Uric Acid 4.3 mg/dL (3.5-8.5)
[2023-09-13 19:01] LABS: LDL Cholesterol Direct 88 mg/dL
[2023-09-13 19:58] LABS: Creatinine Urine 181.6 mg/dL
[2023-09-13 20:01] LABS: MALB Creatinine Ratio 5.5 mg/g (0-30); Microalbumin Urine Random 9.9 mg/L (0-16.7)
== END 2023-09-13 11:18 | disposition home or self-care (01) ==
LOC: ANHGOSHLAB 11:19
PROVIDERS: PCP Family Medicine; Visit Provider Family Medicine
DX: E78.5 Hyperlipidemia, unspecified (principal); E11.9 Type 2 diabetes mellitus without complications; M10.9 Gout, unspecified; Z13.228 Encounter for screening for other metabolic disorders
CPT/HCPCS: 36415; 80053; 80061; 82043; 83036; 84550

== ENCOUNTER → 2023-10-11 14:57 | Outpatient (CLI) | payer MEDICARE, SELFPAY ==
--- NOTE | ~2023-10-11 | XR_ITS ---
EXAMINATION: XR chest 2V DATE: 10/11/2023 15:27 INDICATION: Chronic cough TECHNIQUE: PA and lateral views of the chest were obtained. COMPARISON: Chest radiograph dated 07/21/2017 FINDINGS: Calcified nodule at the right lung base along with calcified mediastinal lymph nodes consistent with old granulomatous disease. No other airspace opacities, pulmonary edema, pleural effusion or pneumoth orax. Heart size is normal. There are bridging osteophytes at multiple levels consistent with diffuse idiopathic skeletal hyperostosis (DISH). IMPRESSION: 1. No acute cardiopulmonary disease. Reviewed, dictated and finalized at location A. IC ADMINISTRATION TEACHER
== END ==
PROVIDERS: PCP Family Medicine; Visit Provider Nurse Practitioner Family
DX: R05.9 Cough, unspecified (principal); I10 Essential (primary) hypertension; E11.9 Type 2 diabetes mellitus without complications
CPT/HCPCS: 71046

== ENCOUNTER 2025-01-04 08:40 | Outpatient (CLI) | payer MEDICARE, SELFPAY ==
--- OUTSIDE RECORDS SUMMARY | 2025-01-04 09:01 | XMS_ITS | Referral Summary ---
Author Organization [facility] Address [address] [place] [address] Care Team Providers Care Revenue Enforcement Agent Name Role Phone Unavailable Primary Care Provider Unavailabl e Source Comments [facility],non-owned Affiliates and Associated Physician Practices is amultiple site organization consisting of ambulatory clinics and hospital sitesin [place], [place], [place] and [place]. This disclosure is being madepursuant to the Care Everywhere program and may not contain all information available regarding this patient. Last updated 18.[facility] [employer] Allergies No known active allergies Immunizations Name Administration Dates Next Due INFLUENZA VACCINE, HIGH-DOSE , QUADR. (FLUZONE HIGH-DOSE QUADRIVALENT; 65Y+), 0.7 ML (HD-IIV4) 07/28/2018 Social History Tobacco Use Types Packs/Day Years Used Date Smoking Tobacco: Never Assessed Sex and Gender Information Value Date Recorded Sex Assigned at Not on file Gender Identity Not on file Sexual Orientation Not on file Plan of Treatment [place] [address]
--- OUTSIDE RECORDS SUMMARY | 2025-01-04 09:01 | XMS_ITS | Continuity of Care Document ---
Author Organization [facility] Address [address] [place] [address] Phone Care Team Providers Care Roofing Subcontractor Name Role Phone Regine Sosa Unavailable Unavailable Procedures Procedure Date Eye Exam & Treatment Eye Exam & Treatment Eye Exam & Treatment Advance Directives Directive Yes / No Effective Date File Name No Information Encounters Encounter Description Practice Location Reason(s) For Visit Diagnoses Date Provider Providers Copied on Encounter [facility], [address] [place] [address] [address], [place], [place], [id number], tel:[phone] [facility] No Information 0 Sheila Jaime [address], [place], [place], [facility], . tel:[phone] [facility], [address] [place] [address] [address], [place], [place], [id number], [place] tel:[phone] [facility] No Information 9 Sheila Jaime [address], [place], [place], [facility], . tel:[phone] [facility], [address] [place] [address] [address], [place], [place], [id number], tel:[phone] [facility] No Information 8 Sheila Weiner. [email or web address] , [address], [place], [address], [place]. tel:[phone] Family History Family Member Type Diagnosis Age At Onset No Information Payers Payer name Insurance type Covered alliance party ID Authoriza tion(s) No Information Social History Type Description Quantity Date Captured Comments Sex Male Smoking Status No Information Chief Complaint And Reason For Visit No Information Reason For Referral Reason For Referral No Information History Of Present Illness Encounter Date Complaint History Of Prese nt Illness No Information Functional Status Date Functional Assessmen t No Information Instructions Date Instruction Additional Infor mation No Information Assessments Type Assessment Date No Information Patient Care Teams Name Effective Dates (start - stop) Status Members No Information
--- OUTSIDE RECORDS SUMMARY | 2025-01-04 09:01 | XMS_ITS | Clinical Summary ---
Author Organization [facility] Address [address] [place] [address] Care Team Providers Care Stunner Name Role Phone Unavailable Primary Care Provider Unavailabl e Source Comments [facility],non-owned Affiliates and Associated Physician Practices is amultiple site organization consisting of ambulatory clinics and hospital sitesin [place], [place], [place] and [place]. This disclosure is being madepursuant to the Care Everywhere program and may not contain all information available regarding this patient. Last updated 18.[facility] [employer] Allergies No known active allergies Immunizations Name Administration Dates Next Due INFLUENZA VACCINE, HIGH-DOSE , QUADR. (FLUZONE HIGH-DOSE QUADRIVALENT; 65Y+), 0.7 ML (HD-IIV4) 07/28/2018 Social History Tobacco Use Types Packs/Day Years Used Date Smoking Tobacco: Never Assessed Sex and Gender Information Value Date Recorded Sex Assigned at Not on file Gender Identity Not on file Sexual Orientation Not on file Plan of Treatment Health Maintenance Due Date Last Done Comments COLOGUARD (AGES 45-75) - COL ON CA SCREENING 1950 COLON MONITORING 1950 COLONOSCOPY - COLON CA SCREENING 1950 CT COLONOGRAPHY - COLON CA SCREENING 1950 Colorectal Cancer Screening 1950 FIT - COLON CA SCREENING 1950 FLEX SIG - COLON CA SCREENING 1950 LIPID TESTING 1950 MEDICARE AWV 12 MONTHS 1950 HEPATITIS C SCREENING 05/19/1968 DTAP/TDAP/TD VACCINES (1 - Tdap) 1969 PNEUMOCOCCAL VACCINE 50+ (1 of 1 - PCV) 2000 ZOSTER VACCINE (1 of 2) 2000 COVID-19 VACCINE (1 - 2023-2 5 season) 2024 INFLUENZA VACCINE (#1) 2024 07/28/2018 DEPRESSION SCREENING 11/01/2024 Respiratory Syncytial Virus (RSV) Vaccine Pt: or over 60 yrs (1 - 1-dose 75+ series) 2025 HEPATITIS B VACCINE Aged Out No longe r eligible based on patient's age to complete this topic HIB VACCINE Aged Out No longer eligi ble based on patient's age to complete this topic HPV VACCINE Aged Out No longer eligi ble based on patient's age to complete this topic MENINGOCOCCAL (Group B) VACCINE Aged Out No longer eligible based on patient's age to complete this topic MENINGOCOCCAL VACCINE Aged Out No yaima stefania eligible based on patient's age [place] [address] Robert Coronado Personal/Famil y Self 1950 [address] [place] [address]
--- OUTSIDE RECORDS SUMMARY | 2025-01-04 09:01 | XMS_ITS | Patient Health Summary ---
Author Organization [facility] Address [address] [place] [address] Care Team Providers Care Aircraft Time Clerk Name Role Phone Unavailable Primary Care Provider Unavailabl e Note from [facility],non-owned Affiliates and Associated Physician Practices is amultiple site organization consisting of ambulatory clinics and hospital sitesin [place], [place], [place] and [place]. This disclosure is being madepursuant to the Care Everywhere program and may not contain all information available regarding this patient. Last updated 18.[facility] Allergies No known active allergies Immunizations * INFLUENZA VACCINE, HIGH-DOSE, QUADR. (FLUZONE HIGH-DOSE QUADRIVALENT; 65Y+), 0.7 ML (HD-IIV4)(Given 07/28/2018) Social History Tobacco Use Types Packs/Day Years Used Date Smoking Tobacco: Never Assessed Sex and Gender Information Value Date Recorded Sex Assigned at Not on file Gender Identity Not on file Sexual Orientation Not on file
[2025-01-04 13:56] LABS: Prostate Specific Antigen 0.4 ng/mL (< OR = 4.0)
[2025-01-04 15:38] LABS: Hemoglobin A1C 7.3 % (<5.7)
== END 2025-01-04 08:41 | disposition home or self-care (01) ==
LOC: ANHGOSHLAB 08:42
PROVIDERS: PCP Nurse Practitioner; Visit Provider Nurse Practitioner
DX: Z12.5 Encounter for screening for malignant neoplasm of prostate (principal); E11.9 Type 2 diabetes mellitus without complications; Z79.4 Long term (current) use of insulin
CPT/HCPCS: 36415; 83036; 84153; G0103

== ENCOUNTER 2025-07-11 09:01 | Outpatient (CLI) | payer MEDICARE, SELFPAY ==
--- OUTSIDE RECORDS SUMMARY | 2025-07-11 09:43 | XMS_ITS | Clinical Summary ---
Author Organization [facility] Address [address] [place] [address] Care Team Providers Care Shipyard Supervisor Name Role Phone Unavailable Primary Care Provider Unavailabl e Source Comments [facility],non-owned Affiliates and Associated Physician Practices is amultiple site organization consisting of ambulatory clinics and hospital sitesin [place], [place], [place]. This disclosure is being madepursuant to the Care Everywhere program and may not contain all information available regarding this patient. Last updated 18.[facility] [employer] Allergies No known active allergies Immunizations Immunization Administration Dates Next Due INFLUENZA VACCINE, HIGH-DOSE , QUADR. (FLUZONE HIGH-DOSE QUADRIVALENT; 65Y+), 0.7 ML (HD-IIV4) 07/28/2018 Social History Tobacco Use Types Packs/Day Years Used Date Smoking Tobacco: Never Assessed Sex and Gender Information Value Date Recorded Sex Assigned at Not on file Legal Sex Male 11:26 AM CDT Gender Identity Not on file Sexual Orientation [...] COLON CA SCREENING 1950 LIPID TESTING 1950 HEPATITIS C SCREENING 05/19/1968 DTAP/TDAP/TD VACCINES (1 - Tdap) 1969 PNEUMOCOCCAL VACCINE 50+ (1 of 1 - PCV) 2000 ZOSTER VACCINE (1 of 2) 2000 DEPRESSION SCREENING 11/01/2024 Respiratory Syncytial Virus (RSV) Vaccine Pt: or over 60 yrs (1 - 1-dose 75+ series) 2025 COVID-19 VACCINE (2023-2 5 season) 2025 INFLUENZA VACCINE (#1) 2025 07/28/2018 HEPATITIS B VACCINE Aged Out No longe r eligible based on patient's age to complete this topic HIB VACCINE Aged Out No longer eligi ble based on patient's age to complete this topic HPV VACCINE Aged Out No longer eligi ble based on patient's age to complete this topic MENINGOCOCCAL (Group B) VACC INE SHARED DECISION-MAKING Aged Out No longer eligibl e based on patient's age to complete this topic MENINGOCOCCAL GROUPS A/C/Y/W VACCINE Aged Out No longer eligible b ased on patient's age to complete this [place] [address] [place] [address] MEDICARE
[2025-07-11 12:50] LABS: Hematocrit 44.4 % (42.0-52.0); Hemoglobin 14.9 g/dL (14.0-18.0); Immature Granulocyte Percent A 0.3 % (0-0.5); Lymphocytes Absolute Auto 1.93 K/mm3 (0.9-3.2); Mean Corpuscular HGB Conc 33.6 g/dl (32-36); Mean Corpuscular Hemoglobin 33.0 pg (26-34); Mean Corpuscular Volume 98.2 fl (80-100); Nucleated Red Blood Cells Absolute Auto 0.000 K/mm3 (0.0-0.012); Nucleated Red Blood Cells Perc 0.0 % (0.0-0.2); Platelet Count Result 147 k/mm3 (150-375); Red Blood Count 4.52 M/mm3 (4.6-6.20); White Blood Count 6.2 K/mm3 (4.5-10.0)
[2025-07-11 13:00] LABS: Alanine Aminotransferase 47 U/L (6-50); Albumin Level 4.0 g/dL (3.5-5.1); Alkaline Phosphatase 80 U/L (38-126); Anion Gap 6 mmol/L (4-12); Aspartate Amino Transferase 55 U/L (17-59); Bilirubin,Total 2.0 mg/dL (0.2-1.3); Blood Urea Nitrogen 20 mg/dL (9-20); Calcium 9.4 mg/dL (8.4-10.2); Carbon Dioxide 30 mmol/L (22-30); Chloride 103 mmol/L (98-107); Cholesterol 153 mg/dL (0-200); Estimated Glomerular Filt Rate > 60; Glucose 115 mg/dL (65-110); HDL Direct 29 mg/dL; Potassium 4.1 mmol/L (3.4-5.0); Sodium 139 mmol/L (137-145); Total Protein 7.1 g/dL (6.3-8.2); Triglycerides 87 mg/dL (<150)
[2025-07-11 16:01] LABS: Hemoglobin A1C 7.0 % (<5.7)
== END 2025-07-11 09:02 | disposition home or self-care (01) ==
LOC: ANHGOSHLAB 09:02
PROVIDERS: PCP Nurse Practitioner; Visit Provider Nurse Practitioner
DX: E78.5 Hyperlipidemia, unspecified (principal); I10 Essential (primary) hypertension; E11.9 Type 2 diabetes mellitus without complications; Z79.4 Long term (current) use of insulin
CPT/HCPCS: 36415; 80053; 80061; 83036; 85025